=== PATIENT | female | born 1950 | race Two or more races ===

== ENCOUNTER 2017-04-26 08:39 | Emergency (ER) | payer SELFPAY ==
--- NOTE | ~2017-04-26 | ER ---
PATIENT'S NAME: MANUEL MELENDEZ [facility] AGE: 66 Y [address] ROOM: [place] [id number] LOCATION: ED ADMIT DATE: 04/26/2017 ER/Outpatient Report DISCHARGE DATE: 04/26/2017 FAMILY PHYSICIAN: Colin Kang MD ATTENDING PHYSICIAN: Roge Brown TIME OF ARRIVAL: 0839 hours. TIME OF EVALUATION: 0839 hours. CHIEF COMPLAINT: Nosebleed. HISTORY OF PRESENT ILLNESS: This is a 66-year-old female, who presented to the ED via private car for nosebleed. She is a [place]-speaking patient. Interpretive Services were provided via video interpretation today. Ms. Manuel Melendez reports that her nosebleed started around 7:00 a.m. this morning. She has been using pressure, but has been able to get it to stop. She did report that she had a nosebleed like this about 6 days ago that she used warm cloths for and it eventually stopped. She did not come to the ER at that time, because she did not have a ride. Today she denies lightheadedness or dizziness. She does state that she has a mild headache since the nosebleed began and does feel mildly nauseous from having a nosebleed. She has not vomited. Denies chest pain or shortness of breath as well. PAST MEDICAL HISTORY: Significant for diabetes. She takes metformin 850 mg 1 tablet in the morning and then 1/2 tablet at night. ALLERGIES: NO KNOWN MEDICAL ALLERGIES. SOCIAL HISTORY: She denies alcohol, illicit drug use, or tobacco use. REVIEW OF SYSTEMS: As per HPI. PHYSICAL EXAMINATION: VITAL SIGNS: Blood pressure 157/93, pulse 84, respiratory rate 16, temperature 98.3, and oxygen saturation 96% on room air. GENERAL: She is a 66-year-old female appearing her stated age, in no apparent PATIENT'S NAME: [facility] AGE: 66 Y [address] ROOM: [place] [address] LOCATION: ED ADMIT DATE: 04/26/2017 ER/Outpatient Report DISCHARGE DATE: 04/26/2017 FAMILY PHYSICIAN: Colin Kang MD ATTENDING PHYSICIAN: Roge Brown. Alert and oriented. HEENT: Pupils are equal, round, and reactive to light. There is dried blood noted in both nares. On visual inspection of the left side, there is a small bleeding vessel on the medial side of the nostril. No other bleeding identified. Mouth; moist mucous membranes. NEUROLOGIC: Normal gait. IMPRESSION: Epistaxis. EMERGENCY DEPARTMENT COURSE: Nasal Afrin was used, and the patient held pressure for approximately 10 minutes. At this point, suctioning was used with visual invasion of the bleeding vessel. Silver nitrate was used to cauterize the vessel and achieved hemostasis. The patient was given a handout on nose bleeds in [place]. She agreed with the course of action and will follow up with her primary care provider as necessary. KEKE CARRIZALES MD FOR ROGE BROWN DO CW/sharon /[id number] ATTENDING ADDENDUM: I saw and evaluated the patient. I have discussed with the resident, agree with the resident's findings and plan and agree with the documented note above. I did personally evaluate the patient's nose bleed. The area was prepped as described above using Afrin and pressure. The bleeding vessel was identified in the anterior aspect of the left nare. Silver nitrate is used to cauterize the vessel and hemostasis is achieved. The patient tolerated it without complication. ROGE BROWN DO d: 04/26/17 1710 t: 05/01/17 0700, OUTPATIENT REPORT
== END 2017-04-26 09:24 | disposition disaster alternative care site (69) ==
LOC: GMED 08:39
PROC: 0W3Q3ZZ Control Bleeding in Respiratory Tract, Percutaneous Approach (ICD-10-PCS; principal; 2017-04-26)
DX: R04.0 Epistaxis (principal); E11.9 Type 2 diabetes mellitus without complications; Z79.84 Long term (current) use of oral hypoglycemic drugs
CPT/HCPCS: A9270